=== PATIENT | male | born 1980 | race Caucasian/White ===

== ENCOUNTER 2016-09-23 18:10 | Emergency (ER) | payer OTHER ==
[~2016-09-23] VITALS: Ht 175.3 cm; Wt 99.4 kg
[~2016-09-23 18:10] MED LIST: CLEOCIN300 MG PO; CLINDAMYCIN HC300 MG PO; DOLOPHINE HCL10 MG PO; FLEXERIL10 MG PO; KEFLEX500 MG PO; METHADONE10 MG PO; MOTRIN600 MG PO; MOTRIN800 MG PO; NAPROSYN500 MG PO; NORCO 5/3251 TABLET PO; OXYCODONE HCL10 MG PO; OXYCODONE HCL30 MG PO; OXYCODONE30 MG PO; PERCOCET 5/31 TABLET PO; TRAZODONE HCL50 MG PO
[2016-09-23 18:50] VITALS: BP 144/112
== END 2016-09-23 18:51 | disposition left against medical advice (07) ==
LOC: EME 18:10
DX: T40.2X1A Poisoning by other opioids, accidental (unintentional), initial encounter (principal); T51.0X1A Toxic effect of ethanol, accidental (unintentional), initial encounter; F11.10 Opioid abuse, uncomplicated; F10.10 Alcohol abuse, uncomplicated; I10 Essential (primary) hypertension; F17.200 Nicotine dependence, unspecified, uncomplicated
CPT/HCPCS: 99281; 99284; J2310

== ENCOUNTER 2016-10-06 22:20 | Emergency (ER) | payer OTHER ==
[~2016-10-06] VITALS: Ht 172.7 cm; Wt 90.9 kg
[2016-10-06 23:08] LABS: HEMATOCRIT 42.9 % (38.0-50.0); MCH 31.1 PG (29.0-34.0); MCHC 33.1 G/DL (30.0-36.0); MCV 94.1 FL (86-99); MEAN PLAT.VOLUME 9.5 uM^3 (9.0-12.4); PLATELET COUNT 228 K/uL (156-360); RBC DIS.WIDTH-CV 13.2 % (11.8-14.6); RBC DIS.WIDTH-SD 45.8 % (39-53); RED BLOOD COUNT 4.56 M/uL (4.00-5.50); WHITE BLOOD COUNT 10.1 K/uL (4.1-10.2)
[2016-10-06 23:22] LABS: CHLORIDE 111 mEq/L (99-109); POTASSIUM 3.5 mEq/L (3.7-5.4); SODIUM 144 mEq/L (136-147)
[2016-10-06 23:24] LABS: GLUCOSE 138 mg/dL (70-99)
[2016-10-06 23:25] LABS: ANION GAP 15 MEQ/L (2-14)
[2016-10-06 23:27] LABS: GFR ESTIMATE (CALCULATED) > 59 mL/min/; SERUM ETHYL ALCOHOL 195 mg/dL
[2016-10-06 23:29] LABS: UREA NITROGEN (BUN) 19 mg/dL (9-23)
[2016-10-06 23:31] LABS: CREATINE KINASE 297 IU/L (1-294); SALICYLATE < 5.0 MG/DL (15-30); TOTAL CK 297 IU/L (1-294); TROP-I INTERPRETATION NEGATIVE; TROPONIN-I < 0.01 ng/mL (0.0-0.30)
[2016-10-06 23:39] LABS: CK-MB 3.4 ng/mL (0.0-4.9)
[2016-10-07] MEDS ORDERED: TORADOL10 MG PO (01:27)
[2016-10-07 01:48] VITALS: BP 136/80
== END 2016-10-07 01:52 | disposition home or self-care (01) ==
LOC: EME 22:20
PROVIDERS: Emergency Medicine
DX: S20.211A Contusion of right front wall of thorax, initial encounter (principal); X58.XXXA Exposure to other specified factors, initial encounter; T50.901A Poisoning by unspecified drugs, medicaments and biological substances, accidental (unintentional), initial encounter; F11.10 Opioid abuse, uncomplicated; I10 Essential (primary) hypertension; F17.200 Nicotine dependence, unspecified, uncomplicated
CPT/HCPCS: 71010; 71250; 80048; 81003; 82550; 82553; 84484; 85027; 93005; 99281; 99285; G0480; J1885; J2310; J2405; J7030

== ENCOUNTER 2017-03-14 14:37 | Inpatient (IN) | payer OTHER ==
[~2017-03-14] VITALS: Ht 175.3 cm; Wt 91.9 kg
[~2017-03-14 14:37] MED LIST changes: +TORADOL10 MG PO
[2017-03-14 15:24] LABS: HEMATOCRIT 42.7 % (38.0-50.0); MCH 29.6 PG (29.0-34.0); MCHC 34.2 G/DL (30.0-36.0); MCV 86.6 FL (86-99); PLATELET COUNT 432 K/uL (156-360); RBC DIS.WIDTH-SD 40.9 % (39-53); RED BLOOD COUNT 4.93 M/uL (4.00-5.50); WHITE BLOOD COUNT 16.9 K/uL (4.1-10.2)
[2017-03-14 15:36] LABS: CHLORIDE 103 mEq/L (99-109); POTASSIUM 4.6 mEq/L (3.7-5.4); SODIUM 138 mEq/L (136-147)
[2017-03-14 15:39] LABS: GLUCOSE 88 mg/dL (70-99)
[2017-03-14 15:40] LABS: ANION GAP 10 MEQ/L (2-14)
[2017-03-14 15:41] LABS: TOTAL BILIRUBIN 0.7 mg/dL (0.0-1.0)
[2017-03-14 15:42] LABS: ALKALINE PHOSPHATASE 103 IU/L (3-129); SERUM ETHYL ALCOHOL < 10 mg/dL
[2017-03-14 15:43] LABS: GFR ESTIMATE (CALCULATED) > 59 mL/min/
[2017-03-14 15:44] LABS: UREA NITROGEN (BUN) 19 mg/dL (9-23)
[2017-03-14 16:11] LABS: ADD MIUA? YES; BILIRUBIN NEGATIVE; BLOOD NEGATIVE; COLOR YELLOW ((YELLOW)); GLUCOSE (STRIP) NEGATIVE; KETONES NEGATIVE; LEUKOCYTES NEGATIVE; NITRITE NEGATIVE; PROTEIN (STRIP) 30; SPECIFIC GRAVITY 1.027 (1.000-1.030); UROBILINOGEN 0.2 MG/DL (0.2-1.0)
[2017-03-14 16:13] LABS: TROP-I INTERPRETATION INDETERMINATE; TROPONIN-I 0.46 ng/mL (0.0-0.30)
[2017-03-14 16:19] LABS: AMPHETAMINE NEGATIVE (500 ng/mL); BARBITURATES NEGATIVE (200 ng/mL); BENZODIAZEPINES NEGATIVE (150 ng/mL); COCAINE NEGATIVE (150 ng/mL); INTERNAL CONTROLS VALID? YES; METHADONE NEGATIVE (200 ng/mL); METHAMPHETAMINE NEGATIVE (500 ng/mL); OPIATES (MORPHINE) NEGATIVE (100 ng/mL); OXYCODONE NEGATIVE (100 ng/mL); PHENCYCLIDINE NEGATIVE (25 ng/mL); PROPOXYPHENE NEGATIVE (300 ng/mL); THC CANNABINOIDS NEGATIVE (50 ng/mL); TRICYCLIC ANTIDEPRESSANTS NEGATIVE (300 ng/mL)
[2017-03-14 16:23] LABS: BACTERIA RARE /HPF; EPITHELIAL CELLS NONE SEEN /HPF; HYALINE CASTS 0-5 /LPF; MUCUS TRACE /LPF; RED BLOOD CELLS 0-5 /HPF (0-5); WHITE BLOOD CELLS 0-5 /HPF (0-5)
[2017-03-14] MEDS ORDERED: GUANFACINE HCL2 MG PO (16:42)
[2017-03-14] MEDS ORDERED: DULOXETINE HCL30 MG PO (16:43)
[2017-03-14] MEDS ORDERED: ELAVIL25 MG PO (16:43)
[2017-03-14 18:22] VITALS: BP 130/78
[2017-03-14 19:18] LABS: HDL CHOLESTEROL 29 MG/DL (Desirable>=40); LDL CHOLESTEROL 153 mg/dL (Desirable<100); NON-HDL CHOLESTEROL 175 mg/dL (Desirable<160); TOTAL CHOLESTEROL 204 mg/dL (Desirable<200); TRIGLYCERIDES 109 MG/DL (Normal: <150)
[2017-03-14 19:46] LABS: FACTOR Xa INHIBITION (LMWH) 0.03 IU/mL; INTER. NORMALIZED RATIO 1.2; PROTHROMBIN TIME 13.5 SEC (10.2-12.9)
[2017-03-14 19:48] LABS: PTT 32.2 SEC (25-37)
[2017-03-14 19:53] LABS: FIBRINOGEN 555 mg/dL (150-450)
[2017-03-14 22:35] VITALS: BP 138/76
[2017-03-15 04:14] VITALS: BP 117/69
[2017-03-15 07:15] LABS: Estimated Average Glucose 108 mg/dL (70-123); HEMOGLOBIN A1c (GLYCOHEMOGLOB) 5.4 % HGB (Below 5.7)
[2017-03-15 09:00] VITALS: BP 128/81
[2017-03-15 09:08] LABS: HEMATOCRIT 40.2 % (38.0-50.0); MCHC 33.1 G/DL (30.0-36.0); MCV 87.6 FL (86-99); MEAN PLAT.VOLUME 9.2 uM^3 (9.0-12.4); PLATELET COUNT 431 K/uL (156-360); RBC DIS.WIDTH-CV 12.9 % (11.8-14.6); RBC DIS.WIDTH-SD 41.5 % (39-53); RED BLOOD COUNT 4.59 M/uL (4.00-5.50); WHITE BLOOD COUNT 13.4 K/uL (4.1-10.2)
[2017-03-15 09:22] LABS: ANION GAP 11 MEQ/L (2-14); CHLORIDE 105 MEQ/L (99-109); GFR ESTIMATE (CALCULATED) > 59 mL/min/; GLUCOSE 96 mg/dL (70-99); POTASSIUM 4.6 MEQ/L (3.7-5.4); SAMPLE HEMOLYSIS CHECK 0; SAMPLE ICTERIC CHECK 0; SAMPLE LIPEMIA CHECK 0; SODIUM 142 MEQ/L (136-147); UREA NITROGEN (BUN) 26 mg/dL (9-23)
[2017-03-15 09:30] LABS: TROP-I INTERPRETATION INDETERMINATE; TROPONIN-I 0.33 ng/mL (0.0-0.30)
[2017-03-15 11:55] LABS: TREPONEMA ANTIBODY NEGATIVE (NEGATIVE)
[2017-03-15 12:00] VITALS: BP 125/73
[2017-03-15 16:23] LABS: TROP-I INTERPRETATION NEGATIVE; TROPONIN-I 0.28 ng/mL (0.0-0.30)
[2017-03-15 19:30] VITALS: BP 141/75
[2017-03-15 21:19] LABS: TROP-I INTERPRETATION NEGATIVE; TROPONIN-I 0.26 ng/mL (0.0-0.30)
[2017-03-16] VITALS (7 sets, daily range): BP systolic 108–149; BP diastolic 54–86
[2017-03-16 05:17] LABS: BASOPHIL COUNT 0.1 K/uL (0-0.1); EOSINOPHIL (%) 1.7 % (0-5); EOSINOPHIL COUNT 0.2 K/uL (0-0.3); HEMATOCRIT 39.1 % (38.0-50.0); IMMATURE GRANULOCYTE (%) 0.6 % (0.0-0.7); IMMATURE GRANULOCYTE COUNT 0.1 K/uL; INSTRUMENT ABS NEUTROPHIL CT 8.5 K/uL; LYMPHOCYTE COUNT 3.6 K/uL (1.0-2.8); MCH 28.7 PG (29.0-34.0); MCV 87.1 FL (86-99); MEAN PLAT.VOLUME 8.9 uM^3 (9.0-12.4); MONOCYTE (%) 5.8 % (3-12); MONOCYTE COUNT 0.8 K/uL (0-0.8); NEUTROPHIL (%) 64.1 % (45-76); NEUTROPHIL COUNT 8.5 K/uL (1.8-6.4); PLATELET COUNT 421 K/uL (156-360); RBC DIS.WIDTH-CV 12.9 % (11.8-14.6); RBC DIS.WIDTH-SD 41.2 % (39-53); RED BLOOD COUNT 4.49 M/uL (4.00-5.50); WHITE BLOOD COUNT 13.3 K/uL (4.1-10.2)
[2017-03-16 05:57] LABS: ALKALINE PHOSPHATASE 83 IU/L (3-129); ANION GAP 7 MEQ/L (2-14); CHLORIDE 105 MEQ/L (99-109); GFR ESTIMATE (CALCULATED) > 59 mL/min/; GLUCOSE 89 mg/dL (70-99); POTASSIUM 4.1 MEQ/L (3.7-5.4); SAMPLE HEMOLYSIS CHECK 0; SAMPLE ICTERIC CHECK 0; SAMPLE LIPEMIA CHECK 0; SODIUM 141 MEQ/L (136-147); TOTAL BILIRUBIN 0.4 MG/DL (0.0-1.0); UREA NITROGEN (BUN) 17 mg/dL (9-23)
[2017-03-17 04:15] VITALS: BP 126/70
[2017-03-17 06:11] LABS: ADD PTT REFLEX? Y; ADD dRVVT REFLEX? Y; DRVVT 1:1 Mix Immediate NOT CORRECTED sec (CORRECTED); DRVVT Mixing Study Interp Positive (()); LUPA PHOSPHOLIPID NEUTRALIZ Positive (Negative); PTT-LA Reflex Has been added (()); dRVVT Screen 63 sec (<=45)
[2017-03-17 07:00] VITALS: BP 120/70
[2017-03-17 11:50] VITALS: BP 128/75
[2017-03-17 12:05] LABS: HEMATOCRIT 40.2 % (38.0-50.0); MCH 29.5 PG (29.0-34.0); MCHC 33.6 G/DL (30.0-36.0); PLATELET COUNT 411 K/uL (156-360); RBC DIS.WIDTH-CV 12.9 % (11.8-14.6); RBC DIS.WIDTH-SD 41.5 % (39-53); RED BLOOD COUNT 4.57 M/uL (4.00-5.50); WHITE BLOOD COUNT 13.3 K/uL (4.1-10.2)
[2017-03-17 12:29] LABS: Protein S, Free 178 % normal (57-171)
[2017-03-17 12:31] LABS: ANION GAP 6 MEQ/L (2-14); CHLORIDE 106 MEQ/L (99-109); GFR ESTIMATE (CALCULATED) > 59 mL/min/; GLUCOSE 80 mg/dL (70-99); POTASSIUM 4.5 MEQ/L (3.7-5.4); SAMPLE HEMOLYSIS CHECK 0; SAMPLE ICTERIC CHECK 0; SAMPLE LIPEMIA CHECK 0; SODIUM 141 MEQ/L (136-147); UREA NITROGEN (BUN) 15 mg/dL (9-23)
[2017-03-17 15:14] VITALS: BP 112/59
[2017-03-17 19:00] VITALS: BP 129/60
[2017-03-17 19:28] LABS: METH RESISTANT S AUREUS PCR NEGATIVE (NEGATIVE)
[2017-03-17 19:29] LABS: PROBE CHECK PASS; SPECIMEN PROCESSING CONTROL PASS
[2017-03-17 21:28] VITALS: BP 137/75
[2017-03-18 03:17] VITALS: BP 117/63
[2017-03-18 06:38] LABS: BASOPHIL COUNT 0.1 K/uL (0-0.1); EOSINOPHIL (%) 2.1 % (0-5); EOSINOPHIL COUNT 0.3 K/uL (0-0.3); HEMATOCRIT 37.6 % (38.0-50.0); IMMATURE GRANULOCYTE (%) 0.5 % (0.0-0.7); IMMATURE GRANULOCYTE COUNT 0.1 K/uL; INSTRUMENT ABS NEUTROPHIL CT 7.7 K/uL; MCH 28.8 PG (29.0-34.0); MCHC 33.2 G/DL (30.0-36.0); MCV 86.6 FL (86-99); MEAN PLAT.VOLUME 8.9 uM^3 (9.0-12.4); MONOCYTE (%) 6.7 % (3-12); MONOCYTE COUNT 0.8 K/uL (0-0.8); NEUTROPHIL (%) 64.8 % (45-76); NEUTROPHIL COUNT 7.7 K/uL (1.8-6.4); PLATELET COUNT 394 K/uL (156-360); RBC DIS.WIDTH-CV 12.7 % (11.8-14.6); RBC DIS.WIDTH-SD 40.3 % (39-53); RED BLOOD COUNT 4.34 M/uL (4.00-5.50); WHITE BLOOD COUNT 11.8 K/uL (4.1-10.2)
[2017-03-18 06:58] LABS: ALKALINE PHOSPHATASE 100 IU/L (3-129); ANION GAP 6 MEQ/L (2-14); CHLORIDE 107 MEQ/L (99-109); GFR ESTIMATE (CALCULATED) > 59 mL/min/; POTASSIUM 4.1 MEQ/L (3.7-5.4); SAMPLE HEMOLYSIS CHECK 0; SAMPLE ICTERIC CHECK 0; SAMPLE LIPEMIA CHECK 0; SODIUM 142 MEQ/L (136-147); UREA NITROGEN (BUN) 13 mg/dL (9-23)
[2017-03-18 06:59] LABS: GLUCOSE 140 mg/dL (70-99); TOTAL BILIRUBIN 0.3 MG/DL (0.0-1.0)
[2017-03-18 07:53] VITALS: BP 126/67
[2017-03-18 11:00] LABS: HBSG INDEX 0.16; HPCA INDEX 0.32
[2017-03-18 11:57] VITALS: BP 131/67
[2017-03-18 16:00] VITALS: BP 149/96
[2017-03-18 19:23] VITALS: BP 144/90
[2017-03-18 23:34] VITALS: BP 142/85
[2017-03-19 03:52] VITALS: BP 118/66
[2017-03-19 06:10] LABS: BASOPHIL COUNT 0.1 K/uL (0-0.1); EOSINOPHIL COUNT 0.4 K/uL (0-0.3); HEMATOCRIT 37.6 % (38.0-50.0); IMMATURE GRANULOCYTE (%) 0.5 % (0.0-0.7); IMMATURE GRANULOCYTE COUNT 0.1 K/uL; LYMPHOCYTE COUNT 3.4 K/uL (1.0-2.8); MCHC 33.5 G/DL (30.0-36.0); MCV 86.4 FL (86-99); MONOCYTE (%) 6.8 % (3-12); MONOCYTE COUNT 0.9 K/uL (0-0.8); NEUTROPHIL (%) 62.5 % (45-76); PLATELET COUNT 396 K/uL (156-360); RBC DIS.WIDTH-CV 12.7 % (11.8-14.6); RBC DIS.WIDTH-SD 39.9 % (39-53); RED BLOOD COUNT 4.35 M/uL (4.00-5.50); WHITE BLOOD COUNT 12.8 K/uL (4.1-10.2)
[2017-03-19 06:33] LABS: ALKALINE PHOSPHATASE 97 IU/L (3-129); ANION GAP 8 MEQ/L (2-14); CHLORIDE 106 MEQ/L (99-109); GFR ESTIMATE (CALCULATED) > 59 mL/min/; GLUCOSE 118 mg/dL (70-99); SAMPLE HEMOLYSIS CHECK 0; SAMPLE ICTERIC CHECK 0; SAMPLE LIPEMIA CHECK 0; SODIUM 142 MEQ/L (136-147); TOTAL BILIRUBIN 0.3 MG/DL (0.0-1.0); UREA NITROGEN (BUN) 12 mg/dL (9-23)
[2017-03-19 07:37] VITALS: BP 122/78
[2017-03-19] MEDS ORDERED: ATORVASTATIN CA40 MG PO (10:53)
[2017-03-19] MEDS ORDERED: ASPIR-LOW81 MG PO (10:53)
[2017-03-19] MEDS ORDERED: NICOTINE PATCH1 EAC1 TD (10:53)
[2017-03-19] MEDS ORDERED: ROCEPHIN 2 GM VI2 GM IV (10:54)
[2017-03-19] MEDS ORDERED: CUBICIN RF500 MG IV (10:55)
[2017-03-21 14:27] LABS: THROMBIN TIME+ 16 sec (13-19)
[2017-03-22 16:04] LABS: DRVVT Mixing Study Interp Positive (()); PROTEIN C FUNCTIONAL ACTIVITY+ 193 % (70-180); PTT-LA 63 sec (<=40); Thrombosis Consult Level Limited (()); dRVVT Screen 68 sec (<=45)
[2017-03-23 13:34] LABS: ANTITHROMBIN III ACTIVITY+ 84 % activi (80-120)
== END 2017-03-19 14:35 | disposition home or self-care (01) | DRG 288 ==
LOC: EME 14:37 → 4EAST 17:01 → ENRESERV 17:01 → EDOF 17:01 → ENRESERV 17:40 → 4EAST 18:16 → ENRESERV 03-17 19:30 → 5SOUTH 03-17 21:25
PROVIDERS: Emergency Medicine; Hospitalist; Internal Medicine Infectious Disease; Specialist
DX: I33.0 Acute and subacute infective endocarditis (principal); I63.9 Cerebral infarction, unspecified; R47.01 Aphasia; I34.0 Nonrheumatic mitral (valve) insufficiency; R79.89 Other specified abnormal findings of blood chemistry; I10 Essential (primary) hypertension; E78.5 Hyperlipidemia, unspecified; F11.10 Opioid abuse, uncomplicated; F14.10 Cocaine abuse, uncomplicated; F10.10 Alcohol abuse, uncomplicated; G89.29 Other chronic pain; R07.9 Chest pain, unspecified; F17.210 Nicotine dependence, cigarettes, uncomplicated; Z91.14 Patient's other noncompliance with medication regimen; Z82.3 Family history of stroke; Z83.3 Family history of diabetes mellitus; Z86.72 Personal history of thrombophlebitis
CPT/HCPCS: 70450; 70496; 70498; 70551; 71010; 80048; 80048 91; 80053; 80061; 80202; 81003; 81240 90; 81241 90; 83036; 83090 90; 84484; 85025; 85027; 85240 90; 85300 90; 85303 90; 85305 90; 85306 90; 85307 90; 85384; 85520; 85597 90; 85610; 85613 90; 85651; 85670 90; 85730; 85730 90; 86038; 86146 90; 86147 90; 86780; 86803; 87040; 87077; 87181; 87340; 87641; 87801; 92507 GN; 92523 GN; 93005; 93306; 93312; 93970; 99281; 99285; C8923; G0480; J0696; J1650; J3370; J7030